=== PATIENT | male | born 1980 | race Caucasian/White ===

== ENCOUNTER 2016-06-08 20:06 | Emergency (ER) | payer SELFPAY ==
[2016-06-08 20:27] VITALS: BP 142/81; PULSE 80; RESP 18; TEMP 98.4
--- NOTE | 2016-06-08 20:37 | ED ---
Wound/Laceration HPI - General Chief Complaint: Wound/Laceration Stated Complaint: Finger Lacertion Time Seen by Provider: 06/08/16 20:21 Source: patient, RN notes reviewed Mode of arrival: ambulatory Limitations: no limitations - History of Present Illness Initial Comments: Patient is a 36-year-old male presents to the emergency room for evaluation of left pointer finger laceration. Patient states he accidentally cut himself with a pocket knife about an hour ago. Patient states the wound is still continuing to bleed. Patient denies taking blood thinners. Patient states he is up-to-date on tetanus vaccine. Patient denies any numbness or tingling in his finger. Patient denies any other injuries during incident. Patient states he is having 7 out of 10 pain at the laceration site. Review of Systems ROS Statement: Those systems with pertinent positive or pertinent negative responses have been documented in the HPI. ROS Other: All systems not noted in ROS Statement are negative. Past Medical History Past Medical History: No Reported History History of Any Multi-Drug Resistant Organisms: None Reported Past Surgical History: No Surgical Hx Reported Past Psychological History: No Psychological Hx Reported Smoking Status: Current every day smoker Past Alcohol Use History: Occasional Past Drug Use History: None Reported General Exam - General Exam Comments Initial Comments: Sitting in exam room in no acute distress. Limitations: no limitations General appearance: alert, in no apparent distress Head exam: Present: atraumatic, normocephalic, normal inspection Eye exam: Present: normal appearance ENT exam: Present: normal exam Neck exam: Present: normal inspection Respiratory exam: Absent: respiratory distress Left Hand Wrist exam: Present: full ROM, tenderness (over laceration site), laceration (2cm laceration over palmar portion of distal phalanx of the second digit). Absent: swelling Vascular: Present: normal capillary refill (Capillary refill less than 2 seconds ), radial pulse (2+), ulnar pulse (2+) Back exam: Present: normal inspection Neurological exam: Present: alert, oriented X3, CN II-XII intact, normal gait Psychiatric exam: Present: normal affect, normal mood Skin exam: Present: warm, dry, normal color. Absent: rash Course Vital Signs 06/08/16 20:20 Temperature 98.4 F Pulse Rate 80 Respiratory 18 Rate Blood Pressure 142/81 O2 Sat by Pulse 99 Oximetry Procedures - Laceration Laceration #1 Consent Obtained: verbal consent Indication: laceration Site: other (left distal phalanx) Size (cm): 2 Description: linear Depth: simple, single layer Anesthetic Used: lidocaine 1% Anesthesia Technique: local infiltration Amount (mls): 2 Pre-repair: wound explored, irrigated extensively Type of Sutures: nylon Size of Sutures: 6-0 Number of Sutures: 7 Technique: simple, interrupted Patient Tolerated Procedure: well, no complications Medical Decision Making - Medical Decision Making Patient is a 36-year-old male who presents to the emergency room with left second digit laceration. laceration repaired with sutures. advised patient to return in 10-12 days for suture removal. patient states he understands everything that was discussed with him. return parameters discussed. case discussed with dr. avina. Disposition Clinical Impression: Finger laceration Disposition: HOME SELF-CARE Condition: Good Instructions: Care For Your Stitches (ED), Finger Laceration (ED) Additional Instructions: Do not submerge suture area in water. Clean suture area with a damp cloth. Take Tylenol or Motrin as needed for discomfort. Please return for suture removal in 10-12 days. Please follow up with primary care provider in 1-2 days. If any new symptom arises or symptoms worsen, return to ER as soon as possible. Referrals: None,Stated [Primary Care Provider] - 1-2 days Time of Disposition: 21:47
== END 2016-06-08 21:57 | disposition home or self-care (01) ==
LOC: EC 20:06
DX: S61.211A Laceration without foreign body of left index finger without damage to nail, initial encounter (principal); W26.0XXA Contact with knife, initial encounter; F17.200 Nicotine dependence, unspecified, uncomplicated
CPT/HCPCS: 12001; 99282